=== PATIENT | male | born 1955 | race Asian ===

== ENCOUNTER 2018-01-01 11:09 | Emergency (ER) | payer BC ==
[2018-01-01] MEDS ORDERED: Nitroglycerin 0.4 MG TAB (25 Tab Bottle) ONE (11:31)
[2018-01-01] MEDS ORDERED: Nitroglycerin 2% Ointment 1 INCH/1 GM Packet ONE (11:31)
--- NOTE | 2018-01-01 11:42 | RAD ---
CHEST 1 VIEW: Date: 01/01/18 HISTORY: Chest pain. COMPARISON: Chest radiograph from 2015. FINDINGS: Lungs are clear. No pneumothorax or effusion. Cardiac silhouette and mediastinal contours within norm al limits. Interval resolution of right lateral pleural effusion. IMPRESSION: No acute intrathoracic abnormality. POS: [facility]
[2018-01-01 11:47] LABS: #Eosinphils 0.1 thou/uL (0.0-0.7); #Lymphocytes 1.6 thou/uL (1.20-3.40); #Monocytes 0.3 thou/uL (0.11-0.59); #Neutrophils 4.7 thou/uL (1.40-6.50); %Basophils 0.7 % (0.0-1.0); %Eosinophils 1.1 % (0.0-10.0); %Lymphocytes 24.3 % (21.0-51.0); %Monocytes 4.6 % (0.0-10.0); %Neutrophils 69.3 % (42.0-75.0); Hemoglobin 15.6 g/dL (14.0-18.0); Mean Corpuscular HGB CONC 33.8 g/dL (32.0-36.0); Mean Corpuscular Hemoglobin 28.6 pg (27.0-31.0); Mean Corpuscular Volume 84.5 fl (80.0-94.0); Mean Platelet Volume 8.3 fL (7.4-10.4); Platelet Count 205 thou/uL (130-400); RBC Distribution Width 13.6 % (11.5-14.5); Red Blood Cell (RBC) Count 5.48 mill/uL (4.70-6.10); White Blood Cell (WBC) Count 6.7 thou/uL (4.8-10.8)
[2018-01-01 11:53] LABS: CKMB 1.2 ng/mL (0-6.6); Troponin I Less than 0.010 ng/mL (< 0.028)
[2018-01-01] MEDS ORDERED: Acetaminophen 500 MG TAB ONE (12:14)
== END 2018-01-01 12:23 | disposition home or self-care (01) ==
LOC: SCSER 11:09
DX: I10 Essential (primary) hypertension (principal); Z79.899 Other long term (current) drug therapy
CPT/HCPCS: 71045; 82553; 84484; 85025; 93005

== ENCOUNTER 2018-12-01 17:11 | Outpatient (CLI) | payer BC ==
--- NOTE | 2018-12-01 17:49 | RAD ---
XR Foot Lt 3 View STANDARD History: [M 79.672 left foot pain] Comparison: None Findings: Severe degenerative change of the great toe metatarsophalangeal joint. There is soft tissue fullness along the medial margin of the great toe metatarsophalangeal joint as well as some ossification. Extensive enthesopathic changes along the medial margin of the navicular. No acute frac ture or malalignment. Mild enthesopathic changes of the Achilles tendon insertion upon the calcaneus. 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
== END 2018-12-01 17:12 | disposition home or self-care (01) ==
LOC: SCSRAD 17:11
PROVIDERS: ATTEND Family Medicine
DX: M79.672 Pain in left foot (principal)

== ENCOUNTER 2019-07-09 07:35 | Day surgery (SDC) | payer BC ==
[2019-06-30 13:44] VITALS: BMI 24.3
[2019-06-30 14:45] LABS: #Basophils 0.1 thou/uL (0.0-0.2); #Eosinphils 0.1 thou/uL (0.0-0.7); #Lymphocytes 1.8 thou/uL (1.20-3.40); #Monocytes 0.3 thou/uL (0.11-0.59); #Neutrophils 4.7 thou/uL (1.40-6.50); %Basophils 0.8 % (0.0-1.0); %Eosinophils 1.6 % (0.0-10.0); %Lymphocytes 25.4 % (21.0-51.0); %Monocytes 3.9 % (0.0-10.0); %Neutrophils 68.4 % (42.0-75.0); Hemoglobin 14.4 g/dL (14.0-18.0); Mean Corpuscular HGB CONC 33.4 g/dL (32.0-36.0); Mean Corpuscular Hemoglobin 29.2 pg (27.0-31.0); Mean Corpuscular Volume 87.3 fL (78.0-98.0); Mean Platelet Volume 8.6 fL (7.4-10.4); Platelet Count 207 thou/uL (130-400); RBC Distribution Width 13.6 % (11.5-14.5); Red Blood Cell (RBC) Count 4.93 mill/uL (4.70-6.10); White Blood Cell (WBC) Count 6.9 thou/uL (4.8-10.8)
[2019-06-30 14:46] LABS: INR-International Normal Ratio 0.9; PTT 28.2 SEC (22.9-36.1); Prothrombin Time 12.5 SEC (12.0-14.7)
[2019-06-30 14:54] LABS: Bacteria/HPF None Seen HPF (None Seen); Bilirubin Negative (Negative); Blood, Urine Negative (Negative); Clarity Clear (Clear); Glucose, Urine (Dipstick) Normal (Negative); Leukocyte Negative Leu/uL (Negative); Nitrite Negative (Negative); Protein, Urine (Dipstick) Negative (Neg-Trace); RBC/HPF 0-3 HPF (0-3); Squamous Epithelial None Seen HPF (0-3); Urobilinogen Normal mg/dL (Less than 2); WBC/HPF 0-3 HPF (0-3)
[2019-06-30 17:40] LABS: Anion Gap 12 mmol/L (10-20); BUN (Urea Nitrogen) 15 mg/dL (8.4-25.7); Calc. Creatinine Clearance 88 mL/min (70-130); Calcium 9.8 mg/dL (7.8-10.44); Carbon Dioxide 28 mmol/L (23-31); Chloride 100 mmol/L (98-107); Estimated GFR-MDRD 84; Glucose 156 mg/dL (80-115); Potassium 4.3 mmol/L (3.5-5.1); Sodium 136 mmol/L (136-145)
[2019-07-09] MEDS ORDERED: Propofol 500 MG/50 ML VIAL ONE (10:01)
[2019-07-09] MEDS ORDERED: Fentanyl 100 MCG/2 ML VIAL ONE (10:01)
[2019-07-09] MEDS ORDERED: Midazolam HCl 2 mg/2 ml Vial ONE (10:25)
[2019-07-09] MEDS ORDERED: Levofloxacin 500 mg/D5W 100 ml Premix Bag ONE (10:34)
--- NOTE | 2019-07-09 11:24 | OP ---
DATE OF PROCEDURE: 07/09/2019 SERVICE: Urology. PREOPERATIVE DIAGNOSIS: BPH with urinary obstruction. POSTOPERATIVE DIAGNOSIS: BPH with urinary obstruction. PROCEDURE PERFORMED: Cystoscopy with UroLift x6 implants. INDICATION FOR PROCEDURE: Mr. Estrada is a 63-year-old male with BPH and obstruction. He is currently on Flomax and finasteride. He wished to stop his medications and improve his urinary stream, which was still not documented, is very good on medication. Risks and benefits of the UroLift procedure were discussed and he agreed to proceed. DESCRIPTION OF PROCEDURE: After identification of armband and verification of consent, the patient was brought back to the operating room, where he underwent total intravenous anesthesia. He was then placed in dorsal lithotomy position and prepped and draped in usual sterile fashion. After appropriate time-out, a lubricated 21-Israeli rigid cystoscope with visual obturator was passed into the urethra into the bladder. The prostate had appeared as it did on outpatient cystoscopy. The visual obturator was switched out for the UroLift device and initially positioned at the patient's left bladder neck. Compression was achieved by angling the UroLift 20 degrees on the contralateral aspect and dropping the hand down to get an anterior lift. The device was brought back enough to be away from the bladder neck and then the safety released and the blue trigger fired to deploy the needle. The tension and Nitinol tab were set using the gilbert trigger and then, the UroLift advanced forward until the white line was in the keyhole at which point the steel urethral end piece was deployed. This resulted in nice compression of the lateral bladder neck on the patient's left. This was then repeated on the right side as well as left and right near the apex. There was still somewhat of a protrusion of the lower aspects and distal aspect of the bladder neck on the patient, which required two more implants placed below the original implants. This resulted in nice opening of the bladder neck and a nice anterior channel on the prostate. At this point, the blood bleeding was minimal. The prostate did appear wide open. The bladder was left full and the UroLift device was removed. An 18-Israeli Forte catheter was placed in the patient's bladder with 10 mL of sterile water placed into the balloon. The patient was then awakened, taken to Day Stay for recovery in stable condition. COMPLICATIONS: None. ESTIMATED BLOOD LOSS: Minimal. RETAINED TUBES AND DRAINS: 18-Israeli Forte catheter. SPECIMENS: None. IMPLANTS USED: 6. DISPOSITION: The patient will undergo a void trial in Recovery. We will then plan for followup on an outpatient basis pending his voiding status. Job ID: [id number]
[2019-07-09] MEDS ORDERED: Phenazopyridine HCl 97.5 MG TABLET ONE (16:30)
== END 2019-07-09 17:40 | disposition home or self-care (01) ==
LOC: SDC 07:35
PROVIDERS: ATTEND Urology
PROC: 0T7D8DZ Dilation of Urethra with Intraluminal Device, Via Natural or Artificial Opening Endoscopic (ICD-10-PCS; principal; 2019-07-09)
DX: N40.1 Benign prostatic hyperplasia with lower urinary tract symptoms (principal); N13.8 Other obstructive and reflux uropathy; E11.9 Type 2 diabetes mellitus without complications; I10 Essential (primary) hypertension; G47.33 Obstructive sleep apnea (adult) (pediatric); Z79.84 Long term (current) use of oral hypoglycemic drugs; Z79.899 Other long term (current) drug therapy; Z87.891 Personal history of nicotine dependence; Z91.018 Allergy to other foods
CPT/HCPCS: 80048; 81001; 85025; 85610; 85730; 87086; C1889; J0131; J1956; J2250; J2704; J3010

== ENCOUNTER 2020-11-29 16:25 | Outpatient (CLI) | payer BC | END 2020-11-29 16:26 | disposition home or self-care (01) | LOC: SCSRAD 16:25 | PROVIDERS: ATTEND Family Medicine | DX: M54.5 Low back pain (principal); M54.2 Cervicalgia; M47.812 Spondylosis without myelopathy or radiculopathy, cervical region; M18.11 Unilateral primary osteoarthritis of first carpometacarpal joint, right hand; M47.816 Spondylosis without myelopathy or radiculopathy, lumbar region | CPT/HCPCS: 72040; 72100 ==